=== PATIENT | female | born 1965 | race Caucasian/White ===

== ENCOUNTER → 2020-11-21 10:05 | Outpatient (CLI) | payer BC, SELFPAY ==
--- NOTE | ~2020-11-21 | DEXA_ITS ---
Bone Density Report Name: Pia Lira Age: 55 Sex: Female Ethnicity: White Date of : 1965 Indication: postmenopausal; screening for osteoporosis; Referring Provider: Brittny, Jennifer Study: Bone densitometry was performed. Exam Date: November 21, 2020 Accession number: [id number] Bone Density: Region BMD T-score Z-score Classification AP Spine (L1-L4) 0.916 -1.2 -0.2 Osteopenia Femoral Neck (Left) 0.729 -1.1 -0.1 Osteopenia Total Hip (Left) 0.860 -0.7 -0.1 Normal Femoral Neck (Right) 0.704 -1.3 -0.3 Osteopenia Total Hip (Right) 0.851 -0.7 -0.1 Normal Total Hip Mean 0.856 -0.7 -0.1 Normal World Health Organization criteria for BMD impression classify patients as: Normal (T-score at or above -1.0), Osteopenia (T-score between -1.0 and -2.5), or Osteoporosis (T-score at or below -2.5). 10-year Fracture Risk(1): Major Osteoporotic Fracture 5.6% Hip Fracture 0.4% Reported Risk Factors: [place] (), Neck BMD=0.704, BMI=27.8 (1) FRAX(R) Version 3.08. Fracture probability calculated for an untreated patient. Fracture probability may be lower if the patient has received treatment. Clinical Information Provided by Patient: Has used the following medications: Vitamin D Patient maximum height was 63.5 Menopause Age: 53 Drinks caffeinated beverages Onset of menses at age 13 Number of children 3 Impression: The patient has low bone mass, based on the Right Femoral Neck T-score. The patient has an estimated ten-year risk of hip fracture of 0.4% and an estimated ten-year risk of major fracture of 5.6%, based on the WHO FRAX algorithm. Discussion: BONE DENSITY IS LOW AT ONE OR MORE SKELETAL SITES. This patient's lowest T-score is low at one or more skeletal sites. It meets the World Health Organization's (WHO) criteria for ?low bone mass? (T-score between -1.0 and -2.5). The patient's 10-year risk of fracture as calculated by FRAX is less than the threshold where pharmacological therapy is recommended by the National Osteoporosis Foundation (NOF). However, all treatment decisions require clinical judgment and consideration of individual patient factors, including patient preferences, comorbidities, previous drug use, risk factors not captured in the FRAX model (e.g., frailty, falls, vitamin D deficiency, increased bone turnover, interval significant decline in bone density) and possible under or overestimation of fracture risk by FRAX. The patient should follow a healthful lifestyle (good nutrition with adequate calcium and vitamin D, and appropriate weight-bearing exercise). Follow-Up: Consider repeating this study in 2 to 3 years to reassess this patient's status, or sooner if there is some new clinical indication. Reported by: [facility] on 11/21/2020 10:25:00 AM.
--- NOTE | ~2020-11-21 | MM_ITS ---
EXAMINATION: MM screening [facility] BI w billy HISTORY: Screening mammogram TECHNIQUE: Craniocaudal and mediolateral oblique 3-D tomosynthesis images were obtained and synthetic 2-D images were generated. CAD analysis was submitted and interpreted. COMPARISON: 10/05/2019, 06/06/2018, 05/14/2017 BREAST PARENCHYMAL COMPOSITION: The breasts are heterogeneously dense, which may obscure small masses . FINDINGS: There is no evidence of suspicious mass, calcification, or architectural distortion to sugg est malignancy in either breast. There has been no suspicious interval change. IMPRESSION: 1. No mammographic evidence of malignancy. 2. Recommend routine screening mammography in one year. BI-RADS Category 1: Negative Reviewed, dictated and finalized at location A. FING COORDINATOR
== END ==
PROVIDERS: PCP Family Medicine; Visit Provider Nurse Practitioner
DX: Z12.31 Encounter for screening mammogram for malignant neoplasm of breast (principal); Z13.820 Encounter for screening for osteoporosis; M85.88 Other specified disorders of bone density and structure, other site; M85.852 Other specified disorders of bone density and structure, left thigh; M85.851 Other specified disorders of bone density and structure, right thigh
CPT/HCPCS: 77063; 77067; 77080

== ENCOUNTER → 2020-11-28 11:13 | Outpatient (CLI) | payer BC, SELFPAY ==
--- NOTE | ~2020-11-28 | US_ITS ---
EXAMINATION: US transvaginal EXAM DATE: 11/28/2020 11:40 INDICATION: Post menopausal bleeding . TECHNIQUE: Pelvic transvaginal sonogram was performed. There are multiple grayscale and Doppler imag es available for interpretation. Comparison is made to prior examination from 04/20/2016. FINDINGS: Uterus measures 9.2 x 5.5 x 5.9 cm, and is morphologically normal. Endometrial stripe key sures 10 mm, mildly thickened There is no free pelvic fluid. Right adnexa: The ovary is not identified. There is no adnexal mass. Left adnexa: The ovary is not identified. There is no adnexal mass. IMPRESSION: Mildly thickened endometrium for postmenopausal status. Differential diagnosis includes h yperplasia, endometrial cancer. Reviewed, dictated and finalized at location A. ET WAITER/WAITRESS IMPRESSION: Mildly thickened endometrium for postmenopausal status. Differentia l diagnosis includes hyperplasia, endometrial cancer.
== END ==
PROVIDERS: PCP Family Medicine; Visit Provider Nurse Practitioner
DX: N95.0 Postmenopausal bleeding (principal); R93.89 Abnormal findings on diagnostic imaging of other specified body structures
CPT/HCPCS: 76830

== ENCOUNTER → 2022-01-16 07:29 | Outpatient (CLI) | payer BC, SELFPAY ==
--- NOTE | ~2022-01-16 | MM_ITS ---
EXAMINATION: MM screening [place] [facility] w b[facility] HISTORY: Screening mammogram TECHNIQUE: Craniocaudal and mediolateral oblique 3-D tomosynthesis images were obtained and synthetic 2-D images were generated. CAD analysis was submitted and interpreted. COMPARISON: November 21, 2020, October 05, 2019, June 06, 2018 bilateral screening mammogram [place] BREAST PARENCHYMAL COMPOSITION: There are scattered areas of fibroglandular density. FINDINGS: There is no evidence of suspicious mass, calcification, or architectural distortion to sugg est malignancy in either breast. There has been no suspicious interval change. IMPRESSION: 1. No mammographic evidence of malignancy. 2. Recommend routine screening mammography in one year. BI-RADS Category 1: Negative Reviewed, dictated and finalized at location A.
== END ==
PROVIDERS: Visit Provider Nurse Practitioner
DX: Z12.31 Encounter for screening mammogram for malignant neoplasm of breast (principal)
CPT/HCPCS: 77063; 77067

== ENCOUNTER 2023-03-02 12:56 | Emergency (ER) | payer BC, SELFPAY ==
[2023-03-02] VITALS (17 sets, daily range): BP systolic 113–157; BP diastolic 60–97; PULSE 62–79; RESP 15–20; TEMP 36.2; O2SAT 96–100
--- NOTE | ~2023-03-02 | XR_ITS ---
XR chest 1V portable DATE: 03/02/2023 13:34 INDICATION: Left chest pain, palpitations TECHNIQUE: Portable AP chest on 03/29/2023 at 1329 hours COMPARISON: 06/04/2018 two-view chest FINDINGS: Anterior atrial septal closure device is again noted. Borderline heart size. No hilar or me diastinal enlargement. No pulmonary infiltrate or consolidation, pleural effusion or pulmonary vascul ar congestion or pneumothorax. Mild thoracic dextroscoliosis IMPRESSION: No active disease or significant change since 06/04/2018 Reviewed, dictated and finalized at location A.
--- NOTE | 2023-03-02 13:05 | ECG_ITS ---
Measurements Intervals Oliver Rate: 70 P: 48 TN: 202 QRS: 32 QRSD: 89 T: 47 QT: 368 QTc: 398 Interpretive Statements SINUS RHYTHM NO PREVIOUS ECG AVAILABLE FOR COMPARISON Electronically Signed On 03-03-2023 12:12:08 CDT by Rayo Ryder M.D.
[2023-03-02 13:29] LABS: Basophils Absolute Auto 0.1 K/mm3 (0.0-0.1); Basophils Percent Auto 0.7 % (0.2-1.2); Eosinophils Absolute Auto 0.1 K/mm3 (0-0.3); Eosinophils Percent Auto 1.1 % (0-4.4); Hematocrit 41.7 % (37.0-47.0); Hemoglobin 13.6 g/dL (12.0-15.0); Immature Granulocyte Absolute 0.02 K/mm3 (0.00-0.031); Immature Granulocyte Percent A 0.3 % (0-0.5); Lymphocytes Absolute Auto 2.08 K/mm3 (0.9-3.2); Lymphocytes Percent Auto 29.3 % (18.3-44.2); Mean Corpuscular HGB Conc 32.6 g/dl (32-36); Mean Corpuscular Hemoglobin 30.8 pg (26-34); Mean Corpuscular Volume 94.3 fl (80-100); Mean Platelet Volume 10.1 fl (7.4-10.4); Monocytes Absolute Auto 0.5 K/mm3 (0.1-0.6); Monocytes Percent Auto 7.5 % (2.6-8.5); Neutrophils Absolute Auto 4.3 K/mm3 (1.3-6.7); Neutrophils Percent Auto 61.1 % (45.5-73.1); Platelet Count Result 316 k/mm3 (150-375); Red Blood Count 4.42 M/mm3 (4.2-5.4); Red Cell Distribution Width 13.7 % (11.5-14.5); White Blood Count 7.1 K/mm3 (4.5-10.0)
[2023-03-02 13:42] LABS: INR 0.9
[2023-03-02 13:43] LABS: Partial Thromboplastin Time 26.5 SECONDS (22.3-36.8)
[2023-03-02 13:46] LABS: Alanine Aminotransferase 17 U/L (6-35); Albumin Level 4.6 g/dL (3.5-5.1); Alkaline Phosphatase 103 U/L (38-126); Anion Gap 3 mmol/L (8-16); Aspartate Amino Transferase 31 U/L (14-36); Bilirubin,Total 0.5 mg/dL (0.2-1.3); Blood Urea Nitrogen 18 mg/dL (7-17); Calcium 9.3 mg/dL (8.4-10.2); Carbon Dioxide 33 mmol/L (22-30); Chloride 105 mmol/L (98-107); Estimated CRCL calculation 68 ml/min; Estimated Glomerular Filt Rate > 60; Glucose 93 mg/dL (65-110); Lipase 209 U/L (23-300); Potassium 4.2 mmol/L (3.4-5.0); Sodium 141 mmol/L (137-145)
[2023-03-02] MEDS: ASPIRIN 81 MG CHEWABLE TABLET 324 MG PO (13:49)
[2023-03-02 13:57] LABS: Troponin I < 0.012 ng/mL (0.000-0.034)
[2023-03-02] MEDS: SODIUM CHLORIDE 0.9% IV 1,000 ML 999 ML IV CONT (14:02)
[2023-03-02 14:14] LABS: D Dimer 0.32 ug/mL (<0.48)
[2023-03-02 14:15] LABS: Magnesium 2.4 mg/dL (1.6-2.3)
--- NOTE | 2023-03-02 14:54 | ED.ARRPALP ---
HPI - Arrhythmia/Palpitations General Chief Complaint: Arrhythmia/Palpitations Stated Complaint: palpitations/tightness/pressure Time Seen by Provider: 03/02/23 13:28 Source: patient and RN notes reviewed Mode of arrival: ambulatory Limitations: no limitations History of Present Illness HPI narrative: This is a 57 year old female who presents for evaluation of palpitations. She reports having palpitations since Saturday. She called her carpenter wooden tank erecting and they have ordered a holter monitor to be mailed to her house next week. She states last night she developed left chest tightness so she came to ER to get piece of mind. She reports this tightness has been constant since last night. She denies fever, chill, cough, shortness of breath, nausea or vomiting. Her pain seems to worse with movement but not with exertion. Related Data Allergies Allergy/AdvReac Type Severity Reaction Status Date / Time No Known Allergies Allergy Unverified 03/02/23 13:12 Review of Systems Constitutional: Constitutional: Denies weakness Cardiovascular: Cardiovascular: Reports chest pain, Denies syncope, Denies rapid heart rate, Denies irregular heart rhythm, Denies leg edema, Reports palpitations and Denies dyspnea Respiratory: Respiratory: Denies chest congestion, Denies hemoptysis, Denies excessive phlegm production and Denies dyspnea Gastrointestinal: Gastrointestinal: Denies abdominal pain, Denies hematochezia, Denies diarrhea and Denies vomiting Genitourinary: Genitourinary: Denies hematuria and Denies dysuria Musculoskeletal: Musculoskeletal: Denies joint swelling, Denies loss of height and Denies muscle weakness Neurologic: Denies syncope, Denies focal weakness and Denies weakness PMFSH Past Medical History Medical History (Updated 03/02/23 @ 16:48 by Charleen Henderson MD) PFO (patent foramen ovale) Surgical History Surgical History (Updated 03/02/23 @ 14:59 by Charleen Henderson MD) H/O section S/P patent foramen ovale closure Social History Social History (Updated 03/02/23 @ 14:59 by Charleen Henderson MD) Smoking status: Never smoker Exam Const: General: no acute distress and alert Nutritional Appearance: well nourished Orientation/consciousness: patient oriented x3 Limitations: no limitations HENMT: Head: normal to inspection Throat: posterior oropharynx normal and uvula midline Eyes: Pupils: Equal, round and reactive pupils present EOM: EOMs intact bilaterally Neck: Neck: normal visual inspection Chest: Chest palpation & inspection: tenderness Resp: Effort & Inspection: normal respiratory effort Auscultation: clear to auscultation bilaterally Cardio: Rate: regular rate Rhythm: regular rhythm Heart sounds: no murmurs GI: GI Palp: Yes Soft to palpation, No Tenderness to palpation present (GI), No Guarding due to palpation present (GI) and No Rigid due to palpation Auscultation: normal bowel sounds Back/Spine/Pelvis: Back: no CVA tenderness Skin: General skin exam: normal color Rashes: no rashes Wounds: no wounds Neuro: General: patient oriented x3, moves all extremities and CN's II-XI intact bilaterally Cranial nerves: Yes Nystagmus not present Speech: normal speech Gait exam (Neuro): Normal gait present Extrem: General: normal to inspection Psych: Mental Status: mental status grossly normal Affect: normal affect Attitude: cooperative Course Vital Signs Vital signs: Vital Signs Temperature 97.1 F L 03/02/23 12:59 Pulse Rate 79 03/02/23 12:59 Respiratory Rate 18 03/02/23 12:59 Blood Pressure 157/79 H 03/02/23 12:59 Pulse Oximetry 99 03/02/23 12:59 Oxygen Delivery Room Air 03/02/23 12:59 Temperature 97.1 F L 03/02/23 12:59 Pulse Rate 65 03/02/23 17:01 Respiratory Rate 18 03/02/23 17:01 Blood Pressure 135/77 03/02/23 17:01 Pulse Oximetry 100 03/02/23 17:01 Oxygen Delivery Room Air 03/02/23 12:59 MDM - Arrhythmia/Palpitations Dif
[2023-03-02 16:40] LABS: Troponin I < 0.012 ng/mL (0.000-0.034)
== END 2023-03-02 17:03 | disposition home or self-care (01) ==
PROVIDERS: Emergency Medicine; Emergency Provider General Practice; PCP Family Medicine
DX: R00.2 Palpitations (principal); R07.89 Other chest pain
CPT/HCPCS: 36415; 71045; 80053; 83690; 83735; 84484; 85025; 85380; 85610; 85730; 93005; 96360; 99284; A9270; J7030

== ENCOUNTER → 2023-04-09 12:41 | Outpatient (CLI) | payer BC, SELFPAY ==
--- NOTE | ~2023-04-09 | MM_ITS ---
EXAMINATION: MM screening [place] BI w b[facility] HISTORY: Screening mammogram TECHNIQUE: Craniocaudal and mediolateral oblique 3-D tomosynthesis images were obtained and synthetic 2-D images were generated. CAD analysis was submitted and interpreted. COMPARISON: January 16, 2022, November 21, 2020, October 05, 2019 bilateral screening mammogram examinat [place] BREAST PARENCHYMAL COMPOSITION: There are scattered areas of fibroglandular density. FINDINGS: There is no evidence of suspicious mass, calcification, or architectural distortion to sugg est malignancy in either breast. There has been no suspicious interval change. IMPRESSION: 1. No mammographic evidence of malignancy. 2. Recommend routine screening mammography in one year. BI-RADS Category 1: Negative Reviewed, dictated and finalized at location A.
== END ==
PROVIDERS: PCP Obstetrics & Gynecology Gynecology; Visit Provider Obstetrics & Gynecology Gynecology
DX: Z12.31 Encounter for screening mammogram for malignant neoplasm of breast (principal)
CPT/HCPCS: 77063; 77067

== ENCOUNTER 2024-06-08 14:21 | Outpatient (CLI) | payer BC, SELFPAY ==
--- NOTE | ~2024-06-08 | MM_ITS ---
EXAMINATION: MM screening [facility] [place] HISTORY: Screening mammogram TECHNIQUE: Craniocaudal and mediolateral oblique 3-D tomosynthesis images were obtained and synthetic 2-D images were generated. CAD analysis was submitted and interpreted. COMPARISON: 04/09/2023, 01/16/2022, 11/21/2020 BREAST PARENCHYMAL COMPOSITION:Not Dense. There are scattered areas of fibroglandular density. FINDINGS: No suspicious mass, calcification, or architectural distortion are identified in either terra ast to suggest malignancy. There has been no suspicious interval change. IMPRESSION: No mammographic evidence of malignancy. Recommend routine screening mammography in one year. BI-RADS Category 1: Negative Reviewed, dictated and finalized at location .
== END 2024-06-08 14:22 | disposition home or self-care (01) ==
LOC: MICIMG 14:23
PROVIDERS: PCP Family Medicine; Visit Provider Nurse Practitioner
DX: Z12.31 Encounter for screening mammogram for malignant neoplasm of breast (principal)
CPT/HCPCS: 77063; 77067

== ENCOUNTER 2024-07-24 13:42 | Outpatient (CLI) | payer BC, SELFPAY ==
--- NOTE | ~2024-07-24 | DEXA_ITS ---
Bone Density Report Name: SARA AVILES Age: 59 Sex: Female Ethnicity: White Date of : 1965 Indication: postmenopausal; screening for osteoporosis; Referring Provider: Brittny, Jennifer Study: Bone densitometry was performed. Exam Date: July 24, 2024 Accession number: [id number] Bone Density: Region BMD T-score Z-score Classification AP Spine(L1-L4) 0.906 -1.3 -0.1 Osteopenia Femoral Neck (Left) 0.731 -1.1 0.1 Osteopenia Total Hip (Left) 0.884 -0.5 0.3 Normal Femoral Neck (Right) 0.649 -1.8 -0.6 Osteopenia Total Hip (Right) 0.852 -0.7 0.1 Normal Femoral Neck Mean 0.690 -1.4 -0.3 Osteopenia Total Hip Mean 0.868 -0.6 0.2 Normal World Health Organization criteria for BMD impression classify patients as: Normal (T-score at or above -1.0), Osteopenia (T-score between -1.0 and -2.5), or Osteoporosis (T-score at or below -2.5). 10-year Fracture Risk(1): Major Osteoporotic Fracture 7.6% Hip Fracture 0.7% Reported Risk Factors: [place] (), Neck BMD=0.649, BMI=29.0 (1) FRAX(R) Version 3.08. Fracture probability calculated for an untreated patient. Fracture probability may be lower if the patient has received treatment. Clinical Information Provided by Patient: Has used the following medications: Vitamin D, Calcium, multi Patient maximum height was 64 Menopause Age: 56 Drinks caffeinated beverages Onset of menses at age 13 Number of children 3 Impression: The patient has low bone mass, based on the Right Femoral Neck T-score. Discussion: BONE DENSITY IS LOW AT ONE OR MORE SKELETAL SITES. This patient's lowest T-score is low at one or more skeletal sites. It meets the World Health Organization's (WHO) criteria for ?low bone mass? (T-score between -1.0 and -2.5). The patient's 10-year risk of fracture as calculated by FRAX is less than the threshold where pharmacological therapy is recommended by the National Osteoporosis Foundation (NOF). However, all treatment decisions require clinical judgment and consideration of individual patient factors, including patient preferences, comorbidities, previous drug use, risk factors not captured in the FRAX model (e.g., frailty, falls, vitamin D deficiency, increased bone turnover, interval significant decline in bone density) and possible under or overestimation of fracture risk by FRAX. The patient should follow a healthful lifestyle (good nutrition with adequate calcium and vitamin D, and appropriate weight-bearing exercise). Follow-Up: Consider repeating this study in 2 to 3 years to reassess this patient's status, or sooner if there is some new clinical indication. Reported by: SUZAN on 07/24/2024 2:04:00 PM. Reviewed, dictated and finalized at location A. JUAN
== END 2024-07-24 13:43 | disposition home or self-care (01) ==
LOC: CHSIMG 13:45
PROVIDERS: PCP Family Medicine; Visit Provider Nurse Practitioner
DX: Z78.0 Asymptomatic menopausal state (principal); M85.89 Other specified disorders of bone density and structure, multiple sites
CPT/HCPCS: 77080

== ENCOUNTER 2025-08-25 14:51 | Outpatient (CLI) | payer BC, SELFPAY ==
--- NOTE | ~2025-08-25 | MM_ITS ---
EXAMINATION: MM screening [place] BI w billy HISTORY: Screening. TECHNIQUE: Craniocaudal and mediolateral oblique 3-D tomosynthesis images were obtained and synthetic 2-D images were generated. CAD analysis was submitted and interpreted. COMPARISON: None available. BREAST PARENCHYMAL COMPOSITION: Dense: The breast tissue is heterogeneously dense, which may obscure small masses. FINDINGS: No suspicious masses are seen. There are no suspicious calcifications. No unexplained architectural distortion is seen. There are no skin or nipple abnormalities identified. There is no adenopathy seen on the images submitted. IMPRESSION: No mammographic evidence to suggest malignancy is seen. The patient may return to screening mammography as per ACR guidelines. BI-RADS: 1 - Negative. Reviewed, dictated and finalized at location B. HEATER OPERATOR
--- OUTSIDE RECORDS SUMMARY | 2025-08-25 14:55 | XMS_ITS | Clinical Summary ---
Author Organization [facility] Address [address] [place] [address] Phone Care Team Providers Care Hogshead Hand Name Role Phone Unavailable Primary Care Provider Unavailabl e Allergies No known active allergies Medications calcium carb,gluc-mag gluc,ox (Calcium Magnesium) 500 mg calcium- 250 mg Tablet 06/08/2024 Active gabapentin (NEURONTIN) 100 mg capsule Take 100 mg by mouth daily. 06/08/2024 Active multivitamin/iro n/folic acid (CENTRUM WOMEN ORAL) 08/03/2022 Active Sbajb-1-HFY-EPA- Fish Oil (Fish OiL) 1,200 (144-216) mg Capsule 06/08/2024 Active L. acidophilus/L. rhamnosus (PROBIOTIC ORAL) Take by mouth. Active Active Problems No known active problems Encounters Date Type Department Care Team Description 07/28/2025 External Device Data ST[facility] ABSTRACTION Provider, Abstract from Last 3 Months Social History Tobacco Use Types Packs/Day Years Used Date Smoking Tobacco: Never Smokeless Tobacco: Never Comments No Sex and Gender Information Value Date Recorded Sex Assigned at Female 09/09/2024 12:18 PM AUTOMOTIVE SALES PROFESSIONAL Legal Sex Female 9:14 AM CDT Gender Identity Female 09/09/2024 12:18 PM AUTOMOTIVE SALES PROFESSIONAL Sexual Orientation Not on file Last Filed Vital Signs Vital Sign Reading Time Taken Comments Blood Pressure 130/80 09/09/2024 1:11 PM AUTOMOTIVE SALES PROFESSIONAL Pulse 84 09/09/2024 1:11 PM AUTOMOTIVE SALES PROFESSIONAL Temperature - - Respiratory Rate - - Oxygen Saturation 97% 09/09/2024 1:11 PM AUTOMOTIVE SALES PROFESSIONAL Inhaled Oxygen Concentration - - Weight 74.8 kg (165 lb) 09/09/2024 1:11 PM AUTOMOTIVE SALES PROFESSIONAL Height 162.6 cm (5' 4) 09/09/2024 1:11 PM AUTOMOTIVE SALES PROFESSIONAL Body Mass Index 28.32 09/09/2024 1:11 PM AUTOMOTIVE SALES PROFESSIONAL Plan of Treatment Health Maintenance Due Date Last Done Comments Pre-Diabetes and Diabetes Screening 1965 DTAP/TDAP/TD VACCINES (1 - Tdap) 1986 HEPATITIS B VACCINES (1 of 3 - 19+ 3-dose series) 04/30 HPV/Cotest (21-29) 1988 CERVICAL CANCER SCREENING 1997 HPV/Cotest (30-65) 1997 PAP SMEAR 1997 BREAST CANCER SCREENING 2007 COLORECTAL SCREENING 2012 Colorectal Cancer Screening 2012 FIT-DNA Q 3 years 2012 FIT/FOBT Q 1 year 2012 Flex Sig/CT Colonography Q 5 years 2012 ZOSTER VACCINE (1 of 2) 2017 INFLUENZA VACCINE (#1) 2025 Insurance
--- OUTSIDE RECORDS SUMMARY | 2025-08-25 14:55 | XMS_ITS | Clinical Summary ---
Author Organization [facility] [employer] Address [address] [place] [address] Care Team Providers Care Rn Telephone Triage Name Role Phone Geremias Gay MD Primary Care Provider [phone] Source Comments [facility] [employer],non-owned Affiliates and Associated Physician Practices is amultiple site organization consisting of ambulatory clinics and hospital sitesin [place], [place], [place] and [place]. This disclosure is being madepursuant to the Care Everywhere program and may not contain all information available regarding this patient. 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 02/05/2013 Overview (12/30/2017): Jun 2012 at [facility] atrial septal defect Family History Medical History Relation Name Comments None Known Father Status: Alive None Known Mother Status: Alive Relation Name Status Comments Father Mother Social History Tobacco Use Types Packs/Day Years Used Date Smoking Tobacco: Never Smokeless Tobacco: Never Alcohol Use Standard Drinks/Week Comments Yes 0 (1 standard drink = 0.6 oz pur e alcohol) Comments Unknown Sex and Gender Information Value Date Recorded Sex Assigned at Not on file 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 Gender Identity Not on file Sexual Orientation Not on file Last Filed Vital Signs Vital Sign Reading Time Taken Comments Blood Pressure 112/60 02/19/2013 2:35 PM CDT Pulse 64 02/19/2013 12:15 PM CDT Temperature 36.6 C (97.9 F) 02/19/2013 11:45 AM CDT Respiratory Rate 16 02/19/2013 2:35 PM CDT Oxygen Saturation 97% 02/19/2013 2:35 PM CDT Inhaled Oxygen Concentration - - Weight 65.8 kg (145 lb) 02/19/2013 7:00 AM CDT Height 162.6 cm (5' 4) 02/19/2013 7:00 AM CDT Body Mass Index 24.89 02/19/2013 7:00 AM CDT Plan of Treatment Health Maintenance Due Date Last Done Comments COLOGUARD (AGES 45-75) - COL ON CA SCREENING 1965 COLON MONITORING 1965 COLONOSCOPY - COLON CA SCREENING 1967 CT COLONOGRAPHY - COLON CA SCREENING 1965 Colorectal Cancer Screening 1965 FIT - COLON CA SCREENING 1965 FLEX SIG - COLON CA SCREENING 1965 MAMMOGRAM 1965 HIV SCREENING 1982 HEPATITIS C SCREENING 05/08/1985 DTAP/TDAP/TD VACCINES (1 - Tdap) 1986 HEPATITIS B VACCINE (1 of 3 - 19+ 3-dose series) 1986 PAP SMEAR 1988 Cervical Cancer Screening 1997 PAP with HPV 1997 PNEUMOCOCCAL VACCINE 50+ (1 of 1 - PCV) 2017 ZOSTER VACCINE (1 of 2) 2017 DEPRESSION SCREENING 09/30/2024 COVID-19 VACCINE (1 - 2024-2 6 season) 2025 INFLUENZA VACCINE (#1) 2025 HIB VACCINE Aged Out No longer eligi ble based on patient's age to complete this topic HPV VACCINE Aged Out No longer eligi ble based on patient's age to complete this topic MENINGOCOCCAL (Group B) VACC INE SHARED DECISION-MAKING Aged Out No longer eligibl e based on patient's age to complete this topic MENINGOCOCCAL GROUPS A/C/Y/W VACCINE Aged Out No longer eligible b ased on patient's age to complete this topic Care Teams Rn Telephone Triage Relationship Specialty Start Date End Date Geremias Gay MD [address] [place] [address] PCP - General 01/20/13
--- OUTSIDE RECORDS SUMMARY | 2025-08-25 14:55 | XMS_ITS | Clinical Summary ---
Author Organization 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 Palpitations 10/29/2012 Atrial septal defect 06/30/2012 Atrial fibrillation 06/07/2011 Resolved Problems Problem Noted Date Diagnosed Date Resolved Date Patent foramen ovale 05/19/2012 021 Encounters Date Type Department Care Team Description 08/17/2025 10:42 AM MINGLE OPERATOR - 08/17/2025 11:59 PM MINGLE OPERATOR Hospital Encounter [facility] [address] [place] [phone] Tear of lateral meniscus of right knee, current, initial encounter Discharge Disposition: Discharge to home or self care from Last 3 Months Immunizations Immunization Administration Dates Next Due Influenza, Quadrivalent, Rec ombinant, Egg Free, Preservative Free, Intramuscular 07/29/2020 Tdap 06/11/2018 ZOSTER Recombinant 01/22/2020,06/16/2019 Surgical History Surgery Date Site/Laterality Comments SECTION Medical History Medical History Date Comments Atrial septal defect 06/30/2012 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7 F) 02/08/2022 7:57 AM CDT Respiratory Rate - - Oxygen Saturation 100% 02/08/2022 7:57 AM CDT Inhaled Oxygen Concentration - - Weight 72.8 kg (160 lb 9.6 oz) 02/08/2022 7:57 A M CDT Height 162.6 cm (5' 4) 08/18/2018 9:00 AM MINGLE OPERATOR Body Mass Index 27.57 08/18/2018 9:00 AM MINGLE OPERATOR Plan of Treatment Health Maintenance Due Date Last Done Comments Breast Cancer Screening-Mammogram 1967 Cervical Cancer Screening 1967 Colon Cancer Screening-Colonoscopy 1967 Depression Screening 1967 Hepatitis C Screening 1967 Hepatitis B Screening 1985 Regular Well Visit/Exam 18-64 1985 Covid-19 Vaccine (3 - 2024-2 6 season) 2025 12/07/2020, 11/14/2020 Influenza Vaccine (#1) 2025 07/29/2020 DTaP/Tdap/Td Vaccine (2 - Td or Tdap) 06/11/2028 06/11/2018 Zoster Vaccine Completed 01/22/2020, 06/16/2019 Pneumococcal vaccine <65 Aged Out No longer eligible based on patient's age to complete this topic Medical Devices Implanted Type Area Mica Layer Device Identifier Shelf Expiration Date Model / Serial / Lot Clay Asd Occluder N/A: Heart Procedures Procedure Name Priority Date/Time Associated Diagnosis Comments MRI KNEE RIGHT WO CONTRAST Schedule Routine, Read Routine (OP Routine) 08/17/2025 11:25 AM MINGLE OPERATOR Tear of lateral meniscus of right knee, current, initial encounter from Last 3 Months Results * MRI Knee Right WO Contrast (08/17/2025 11:25 AM MINGLE OPERATOR) Anatomical Region Laterality Modality Lower Extremities Right Magnetic Reson ance 08/17/2025 2:50 PM MINGLE OPERATOR Impressions 08/17/2025 2:50 PM MINGLE OPERATOR 1. Complex tear of the right medial meniscus posterior horn root junction with near complete radial component. 2. Mild patellofemoral and mild to moderate medial bicompartmental right knee chondrosis. 3. Moderate sized right knee effusion. Electronically signed by: Pablo Padron M.D. Narrative 08/17/2025 2:50 PM MINGLE OPERATOR EXAMINATION: 1. MRI right knee without contrast HISTORY: Right knee pain for months COMPARISON: None available FINDINGS: Multiplanar multisequence MR examination of the right knee was performed. In the medial compartment, there is a complex tear of the posterior horn root junction with radial component. Deep partial thickness cartilage loss of the central weightbearing femoral condyle and tibial plateau. In the lateral compartment, the meniscus is intact. There is no focal chondrosis or subchondral edema. In the patellofemoral compartment, there is partial thickness cartilage loss of the medial facet with fissuring. The cruciate and collateral ligaments are intact. Medial collateral ligament bursitis. The extensor mechanism is normal. The popliteus tendon is normal. Moderate size knee effusion. No loose bodies are identified. Procedure Note Pablo Padron MD - 08/17/2025 EXAMINATION: 1. MRI right knee without contrast HISTORY: Right knee pain for months COMPARISON: None available FINDINGS: Multiplanar multisequence MR examination of the right knee was performed. In the medial compartment, there is a complex tear of the posterior horn root junction with radial component. Deep partial thickness cartilage loss of the central weightbearing femoral condyle and tibial plateau. In the lateral compartment, the meniscus is intact. There is no focal chondrosis or subchondral edema. In the patellofemoral compartment, there is partial thickness cartilage loss of the medial facet with fissuring. The cruciate and collateral ligaments are intact. Medial collateral ligament bursitis. The extensor mechanism is normal. The popliteus tendon is normal. Moderate size knee effusion. No loose bodies are identified. IMPRESSION: 1. Complex tear of the right medial meniscus posterior horn root junction with near complete radial component. 2. Mild patellofemoral and mild to moderate medial bicompartmental right knee chondrosis. 3. Moderate sized right knee effusion. Electronically signed by: Pablo Pdaron M.D. Olesya Ugalde DC IMG MRI PROCEDURES Fin al Result from Last 3 Months Insurance [facility] CHOICE PLUS [employer] OOS [employer] Care Teams Programmer Developer Relationship Specialty Start Date End Date Evangelist Givens MD [address] [place] [address] [place] [address] PCP - General Family Medicine 08/18/18
--- OUTSIDE RECORDS SUMMARY | 2025-08-25 14:55 | XMS_ITS | Encounter Summary ---
Author Organization [facility] Address [address] [place] [address] Care Team Providers Care Associate Professor Of Biostatistics Name Role Phone Unavailable Primary Care Provider Unavailabl e Encounter Details Date Type Department Care Team (Late st Contact Info) Description 10/15/2024 Results Follow-Up [facility] - [facility] [id number] [facility] [address] [place] [address] Ghulam Landa MD [address] [facility] [address] [place] [address] MRI BRAIN CERVICAL W WO CONTRAST Social History Tobacco Use Types Packs/Day Years Used Date Smoking Tobacco: Never Smokeless Tobacco: Never Comments No Sex and Gender Information Value Date Recorded Sex Assigned at Female 09/09/2024 12:18 PM MANAGER OF CLINICAL Legal Sex Female 9:14 AM CDT Gender Identity Female 09/09/2024 12:18 PM MANAGER OF CLINICAL Sexual Orientation Not on file documented as of this encounter Plan of Treatment Not on file documented as of this encounter Visit Diagnoses Not on filedocumented in this encounter
== END 2025-08-25 14:52 | disposition home or self-care (01) ==
LOC: ANHFOHIMG 14:53
PROVIDERS: PCP Family Medicine; Visit Provider Nurse Practitioner
DX: Z12.31 Encounter for screening mammogram for malignant neoplasm of breast (principal)
CPT/HCPCS: 77063; 77067

== ENCOUNTER 2025-09-21 15:08 | Outpatient (CLI) | payer BC, SELFPAY ==
--- NOTE | 2025-09-21 | ECG_ITS ---
Test Date: 2025-09-21 15:25:16 Measurements Intervals [place] Rate: 67 P: 15 AL: 207 QRS: 44 QRSD: 102 T: 23 QT: 391 QTc: 413 Interpretive Statements SINUS RHYTHM MINIMAL Q WAVES- INFERIOR LEADS BASELINE ARTIFACT- I, II, III, AVR, AVL, AVF BORDERLINE ECG No previous ECG available for comparison Electronically Signed On 09-21-2025 15:57:29 FEED INSPECTION SUPERVISOR by Cornelius Arteaga D.O.
--- OUTSIDE RECORDS SUMMARY | 2025-09-21 15:13 | XMS_ITS | Clinical Summary ---
Author Organization [facility] Address [address] [place] [address] Care Team Providers Care Journeyman Sheet Metal Worker Name Role Phone Evangelist Givens MD Primary Care Provider +1- [phone] Allergies Active Allergy Reactions Criticality Noted Date [...] Department Care Team Description 08/17/2025 10:42 AM WEAVER HAND - 08/17/2025 11:59 PM WEAVER HAND Hospital Encounter [facility] [address] [place] [address] Tear of lateral meniscus of right knee, [...] on file Legal Sex Female 6:40 AM WEAVER HAND Gender Identity Not on file Sexual Orientation [...] 162.6 cm (5' 4) 08/18/2018 9:00 AM WEAVER HAND Body Mass Index 27.57 08/18/2018 9:00 AM WEAVER HAND Plan of Treatment Health Maintenance Due Date [...] this topic Medical Devices Implanted Type Area Sales Representative Business Courses Device Identifier Shelf Expiration Date Model / Serial / Lot [place] Asd Occluder N/A: Heart Procedures Procedure Name Priority Date/Time Associated Diagnosis Comments MRI KNEE RIGHT WO CONTRAST Schedule Routine, Read Routine (OP Routine) 08/17/2025 11:25 AM WEAVER HAND Tear of lateral meniscus of right knee, current, initial encounter from Last 3 Months Results * MRI Knee Right WO Contrast (08/17/2025 11:25 AM WEAVER HAND) Anatomical Region Laterality Modality Lower Extremities Right Magnetic Reson ance 08/17/2025 2:50 PM WEAVER HAND Impressions 08/17/2025 2:50 PM WEAVER HAND 1. Complex tear of the right medial meniscus posterior horn root junction with near complete radial component. 2. Mild patellofemoral and mild to moderate medial bicompartmental right knee chondrosis. 3. Moderate sized right knee effusion. Electronically signed by: Pablo Padron M.D. Narrative 08/17/2025 2:50 PM WEAVER HAND EXAMINATION: 1. MRI right knee without contrast [...] effusion. Electronically signed by: Pablo Padron M.D. Olesya Ugalde DC IMG MRI PROCEDURES Fin al Result from Last 3 Months Insurance [facility] CHOICE PLUS [facility] HMO/PPO Address: [facility] [address] [place] [address] [employer] Care Teams Journeyman Sheet Metal Worker Relationship Specialty Start Date End Date Evangelist Givens MD [address] [place] [address] [place] [address] PCP - General Family Medicine 08/18/18
--- OUTSIDE RECORDS SUMMARY | 2025-09-21 15:13 | XMS_ITS | Clinical Summary ---
Author Organization [facility] Address [address] [place] [address] Phone Care Team Providers Care Watershed Coordinator Name Role Phone Unavailable Primary Care Provider Unavailabl e Allergies No known active allergies Medications calcium carb,gluc-mag gluc,ox (Calcium Magnesium) 500 mg calcium- 250 mg Tablet 06/08/2024 Active gabapentin (NEURONTIN) 100 mg capsule Take 100 mg by mouth daily. 06/08/2024 Active multivitamin/iro n/folic acid (CENTRUM WOMEN ORAL) 08/03/2022 Active Kfupz-6-UAR-EPA- Fish Oil (Fish OiL) 1,200 (144-216) mg Capsule 06/08/2024 Active L. acidophilus/L. rhamnosus (PROBIOTIC ORAL) Take by mouth. Active Active Problems No known active problems Encounters Date Type Department Care Team Description 09/14/2025 External Device Data STL ABSTRACTION Provider, Abstract 09/07/2025 External Device Data STL ABSTRACTION Provider, Abstract 07/28/2025 External Device Data STL ABSTRACTION Provider, Abstract from Last 3 Months Social History Tobacco Use Types Packs/Day Years Used Date Smoking Tobacco: Never Smokeless Tobacco: Never Comments No Sex and Gender Information Value Date Recorded Sex Assigned at Female 09/09/2024 12:18 PM MERCHANDISING ASSISTANT Legal Sex Female 9:14 AM CDT Gender Identity Female 09/09/2024 12:18 PM MERCHANDISING ASSISTANT Sexual Orientation Not on file Last Filed Vital Signs Vital Sign Reading Time Taken Comments Blood Pressure 130/80 09/09/2024 1:11 PM MERCHANDISING ASSISTANT Pulse 84 09/09/2024 1:11 PM MERCHANDISING ASSISTANT Temperature - - Respiratory Rate - - Oxygen Saturation 97% 09/09/2024 1:11 PM MERCHANDISING ASSISTANT Inhaled Oxygen Concentration - - Weight 74.8 kg (165 lb) 09/09/2024 1:11 PM MERCHANDISING ASSISTANT Height 162.6 cm (5' 4) 09/09/2024 1:11 PM MERCHANDISING ASSISTANT Body Mass Index 28.32 09/09/2024 1:11 PM MERCHANDISING ASSISTANT Plan of Treatment Health Maintenance Due Date Last Done Comments DTAP/TDAP/TD VACCINES (1 - Tdap) 1986 HEPATITIS [...]
--- OUTSIDE RECORDS SUMMARY | 2025-09-21 15:13 | XMS_ITS | Encounter Summary ---
Author Organization [facility] Address [address] [place] [address] Care Team Providers Care Healthcare Advisory Services Manager Name Role Phone Unavailable Primary Care Provider Unavailabl e Encounter Details Date Type Department Care Team (Late st Contact Info) Description 10/15/2024 Results Follow-Up [facility]UR[facility] - [facility] [id number] [facility] [address] [place] [address] Ghulam Landa MD [address] [facility] [address] [place] [address] MRI BRAIN CERVICAL W WO CONTRAST Social History Tobacco Use Types Packs/Day Years Used Date Smoking Tobacco: Never Smokeless Tobacco: Never Comments No Sex and Gender Information Value Date Recorded Sex Assigned at Female 09/09/2024 12:18 PM HYDRO SPRAYER OPERATOR Legal Sex Female 9:14 AM CDT Gender Identity Female 09/09/2024 12:18 PM HYDRO SPRAYER OPERATOR Sexual Orientation Not on file documented as of this encounter Plan of Treatment Not on file documented as of this encounter Visit Diagnoses Not on filedocumented in this encounter
--- OUTSIDE RECORDS SUMMARY | 2025-09-21 15:13 | XMS_ITS | Clinical Summary ---
Author Organization [facility] Address [address] [place] [address] Care Team Providers Care Marketing Area Manager Name Role Phone Geremias Gay MD Primary Care Provider [phone] Source Comments [facility],non-owned Affiliates and Associated Physician Practices is amultiple site organization consisting of ambulatory clinics and hospital sitesin [place], [place], [place] and [place]. This disclosure is being madepursuant to the Care Everywhere program and may not contain all information available regarding this patient. 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 Other specified postprocedural states 02/05/2013 Overview (12/30/2017): Jun 2012 at [facility] atrial septal defect Personal history of correcte d congenital malformations of heart and circulatory system 02/05/2013 Overview (12/30/2017): Jun 2012 at [facility] for [facility] atrial septal defect Family History [...] on file Legal Sex Female 6:47 PM PRACTICING DERMATOLOGIST Gender Identity Not on file Sexual Orientation [...] of 3 - 19+ 3-dose series) 1986 PNEUMOCOCCAL VACCINE 50+ (1 of 1 - [...] age to complete this topic Care Teams Marketing Area Manager Relationship Specialty Start Date End Date Geremias Gay MD [address] [place] [address] PCP - General 01/20/13
--- OUTSIDE RECORDS SUMMARY | 2025-09-21 15:13 | XMS_ITS | Encounter Summary ---
Author Organization [facility] Address [address] [place] [address] Phone Care Team Providers Care Administration Clerk Name Role Phone Unknown, Notinfile Primary Care Provider Unavail able Evangelist Givens MD Primary Care Provider [phone] Encounter Details Date Type Department Care Team (Late st Contact Info) Description 08/04/2018 Telephone [facility] Cardiology [address] [facility] 8th [place] [address] [place] [phone] [place] [address] [place] [id number] Social History Tobacco Use Types Packs/Day Years Used Date Smoking Tobacco: Never Comments Unknown Sex and Gender Information Value Date Recorded Sex Assigned at Not on file Legal Sex Female 6:40 AM ARCHITECTURE TECHNICIAN Gender Identity Not on file Sexual Orientation Not on file documented as of this encounter Plan of Treatment Not on file documented as of this encounter Visit Diagnoses Not on filedocumented in this encounter Care Teams Administration Clerk Relationship Specialty Start Date End Date Unknown, Ab[place] PCP - General 05/20/18 08/17/18 Evangelist Givens MD [address] [place] [address] [address] [place], [place] [id number] PCP - General Family Medicine 08/18/18 documented as of this encounter
== END 2025-09-21 15:09 | disposition home or self-care (01) ==
LOC: ANHLAB 15:11
PROVIDERS: PCP Family Medicine; Visit Provider Nurse Practitioner
DX: E78.5 Hyperlipidemia, unspecified (principal); I10 Essential (primary) hypertension; Z01.818 Encounter for other preprocedural examination; R94.31 Abnormal electrocardiogram [ECG] [EKG]
CPT/HCPCS: 93005